=== PATIENT | male | born 1965 | race Caucasian/White ===

== ENCOUNTER 2020-12-10 19:45 | Inpatient (IN) | payer OTHER ==
[~2020-12-10] VITALS: Ht 188 cm; Wt 89.0 kg
[~2020-12-10 19:45] MED LIST: ASPIR 8181 MG PO; ESOMEPRAZOLE MA20 MG PO; HYZAAR 50-12.51 EACH PO; KETOROLAC TROME10 MG PO; LIPITOR10 MG PO; NORCO 5-325 TA1 EACH PO; SKELAXIN800 MG PO
[2020-12-10 21:23] LABS: ALBUMIN 3.6 g/dL (3.4-5.0); BILIRUBIN - TOTAL 0.9 mg/dL (0.2-1.0); BUN/CREAT RATIO (CALC) 16.7 RATIO; C-REACTIVE PROTEIN 9.3 mg/dL (<=0.90); CREATININE 0.9 mg/dL (0.67-1.17); MAGNESIUM 2.1 mg/dL (1.8-2.4); POTASSIUM 3.4 mmol/L (3.5-5.1); TOTAL PROTEIN 6.6 g/dL (6.4-8.2)
[2020-12-10 21:29] LABS: BASOPHIL 0 % (0-2); EOSINOPHIL 0 % (0-5); HGB 14.8 g/dl (13.2-18.0); LYMPHOCYTE 19.9 % (15-48); MCH 31.4 pg (25.0-31.0); MCHC 35.2 g/dL (32.0-36.0); MCV 89.2 fL (78.0-100.0); MONOCYTE 6.3 % (0-12); MPV 10.8 fL (6.0-9.5); NRBC 0; PLT 118 K/uL (150-400); RBC 4.71 M/uL (4.70-6.00); RDW 12.1 % (11.5-14.0)
[2020-12-10 21:30] LABS: WBC 2.6 K/uL (4.0-10.5)
[2020-12-10 21:33] LABS: PRO-BNP 66 pg/mL (<125)
[2020-12-10 23:17] LABS: BILIRUBIN NEGATIVE (NEGATIVE); BLOOD 1+ Ery/uL (NEGATIVE); CLARITY CLEAR (CLEAR); COLOR YELLOW (YELLOW); GLUCOSE (U) NORMAL (NORMAL); LEUKOCYTES NEGATIVE Leu/uL (NEGATIVE); NITRITE NEGATIVE (NEGATIVE); PROTEIN TRACE (LOW) mg/dL (NEGATIVE); SPECIFIC GRAVITY <=1.005 (1.001-1.030); UROBILINOGEN 0.2 mg/dL (0.2-1.0)
[2020-12-10 23:33] LABS: BACTERIA TRACE
[2020-12-10 23:34] LABS: URINARY RBC RARE
[2020-12-11 04:20] LABS: LDH 557 U/L (85-227)
[2020-12-11 07:01] LABS: BASOPHIL 0 % (0-2); EOSINOPHIL 0 % (0-5); HCT 36.8 % (42.0-52.0); HGB 12.9 g/dl (13.2-18.0); MCH 31.4 pg (25.0-31.0); MCHC 35.1 g/dL (32.0-36.0); MCV 89.5 fL (78.0-100.0); MPV 10.5 fL (6.0-9.5); NEUTROPHIL 78.8 % (41-80); NRBC 0; PLT 116 K/uL (150-400); RBC 4.11 M/uL (4.70-6.00); RDW 12.1 % (11.5-14.0); WBC 2.8 K/uL (4.0-10.5)
[2020-12-11 07:09] LABS: LYMPHOCYTE 16.5 % (15-48)
[2020-12-11 07:55] LABS: BILIRUBIN - TOTAL 0.8 mg/dL (0.2-1.0); BUN/CREAT RATIO (CALC) 13.5 RATIO; CREATININE 0.89 mg/dL (0.67-1.17); GLOBULIN (CALCULATION) 2.8 g/dL; POTASSIUM 3.3 mmol/L (3.5-5.1); TOTAL PROTEIN 5.8 g/dL (6.4-8.2)
[2020-12-12 06:18] LABS: BASOPHIL 0 % (0-2); EOSINOPHIL 0 % (0-5); HGB 13.7 g/dl (13.2-18.0); LYMPHOCYTE 18.8 % (15-48); MCH 31.3 pg (25.0-31.0); MCHC 35.1 g/dL (32.0-36.0); MONOCYTE 6.4 % (0-12); MPV 10.7 fL (6.0-9.5); NEUTROPHIL 73.8 % (41-80); NRBC 0; PLT 147 K/uL (150-400); RBC 4.38 M/uL (4.70-6.00); RDW 12.1 % (11.5-14.0); WBC 3.1 K/uL (4.0-10.5)
[2020-12-12 07:16] LABS: BILIRUBIN - TOTAL 0.6 mg/dL (0.2-1.0); BUN/CREAT RATIO (CALC) 20.6 RATIO; C-REACTIVE PROTEIN 7.6 mg/dL (<=0.90); CREATININE 0.68 mg/dL (0.67-1.17); GLOBULIN (CALCULATION) 3.4 g/dL; POTASSIUM 4.2 mmol/L (3.5-5.1); TOTAL PROTEIN 6.4 g/dL (6.4-8.2)
--- NOTE | 2020-12-12 13:44 | NUR ---
12/12/20 Please monitor for 02 needs.
[2020-12-14 06:19] LABS: BASOPHIL 0 % (0-2); EOSINOPHIL 0 % (0-5); HCT 36.3 % (42.0-52.0); HGB 12.5 g/dl (13.2-18.0); MCH 30.9 pg (25.0-31.0); MCHC 34.4 g/dL (32.0-36.0); MCV 89.6 fL (78.0-100.0); NEUTROPHIL 68.3 % (41-80); NRBC 0; PLT 166 K/uL (150-400); RBC 4.05 M/uL (4.70-6.00); RDW 11.9 % (11.5-14.0); WBC 4.2 K/uL (4.0-10.5)
[2020-12-14 07:15] LABS: ALBUMIN 2.9 g/dL (3.4-5.0); BILIRUBIN - TOTAL 0.7 mg/dL (0.2-1.0); BUN/CREAT RATIO (CALC) 21.2 RATIO; C-REACTIVE PROTEIN 1.6 mg/dL (<=0.90); CREATININE 0.8 mg/dL (0.67-1.17); GLOBULIN (CALCULATION) 3.1 g/dL; POTASSIUM 3.5 mmol/L (3.5-5.1)
[2020-12-15] MEDS ORDERED: VENTOLIN HFA IN18 GM INH (11:07)
[2020-12-15] MEDS ORDERED: DEXAMETHASONE6 MG PO (11:07)
[2020-12-15] MEDS ORDERED: ELIQUIS5 MG PO (11:07)
== END 2020-12-15 12:32 | disposition home or self-care (01) | DRG 177 ==
LOC: FER 19:45 → FMS 23:42
PROVIDERS: Emergency Medicine Emergency Medical Services; Nurse Practitioner; ADMIT Internal Medicine
PROC: 8E0ZXY6 Isolation (ICD-10-PCS; 2020-12-10)
PROC: XW033E5 Introduction of Remdesivir Anti-infective into Peripheral Vein, Percutaneous Approach, New Technology Group 5 (ICD-10-PCS; principal; 2020-12-11)
DX: U07.1 COVID-19 (principal); J96.01 Acute respiratory failure with hypoxia; J12.82 Pneumonia due to coronavirus disease 2019; I26.93 Single subsegmental thrombotic pulmonary embolism without acute cor pulmonale; I82.290 Acute embolism and thrombosis of other thoracic veins; I10 Essential (primary) hypertension; K21.9 Gastro-esophageal reflux disease without esophagitis; Z88.0 Allergy status to penicillin; Z88.5 Allergy status to narcotic agent; Z88.1 Allergy status to other antibiotic agents; Z95.0 Presence of cardiac pacemaker; Z90.49 Acquired absence of other specified parts of digestive tract; Z79.82 Long term (current) use of aspirin; Z79.899 Other long term (current) drug therapy
CPT/HCPCS: 36415; 36600; 71275; 80053; 81001; 82728; 82803; 83605; 83615; 83690; 83735; 83880; 84484; 85025; 85379; 86140; 93005; 93970; 94640; 94664; 94667; 94668; 94760; 94762; C9399; J0456; J1100; J1650; J2405; J7050; J7120; J8540; Q9967; U0002